=== PATIENT | male | born 1970 | race Two or more races ===

== ENCOUNTER 2024-04-18 22:10 | Inpatient (IN) | payer OTHER ==
[2024-04-18 22:22] VITALS: BMI 26.6
[2024-04-18] MEDS ORDERED: NICOTINE POLACRILEX 2 MG LOZENGE BC PRN (22:33)
[2024-04-18] MEDS ORDERED: BISMUTH SUBSALICYLATE 524 MG/30 ML PO PRN (22:33)
[2024-04-18] MEDS ORDERED: NICOTINE POLACRILEX 2 MG GUM BUC PRN (22:33)
[2024-04-18] MEDS ORDERED: ONDANSETRON *ODT* 4 MG TABLET SL PRN (22:33)
[2024-04-18] MEDS ORDERED: BENZONATATE 200 MG CAPSULE PO PRN (22:33)
[2024-04-18] MEDS ORDERED: LOPERAMIDE HCL 2 MG CAPSULE PO PRN (22:33)
[2024-04-18] MEDS ORDERED: IBUPROFEN 400 MG TABLET (FP) PO PRN (22:33)
[2024-04-18] MEDS ORDERED: ACETAMINOPHEN 325 MG TABLET (FP) PO PRN (22:33)
[2024-04-18] MEDS ORDERED: DICYCLOMINE HCL 10 MG CAPSULE PO PRN (22:33)
[2024-04-18] MEDS ORDERED: BENZOCAINE/MENTHOL (CHLORASEPTIC ) LOZENGE MM PRN (22:33)
[2024-04-18] MEDS ORDERED: MAGNESIUM HYDROX 2400MG/30ML ORAL SUSPENSION 30 ML CUP PO PRN (22:33)
[2024-04-18] MEDS ORDERED: POLYETHYLENE GLYCOL (HEALTHYLAX) 3350 17 GM PACKET PO PRN (22:33)
[2024-04-18] MEDS ORDERED: guaiFENesin 600 MG TABLET.ER (FP) PO PRN (22:33)
[2024-04-18] MEDS ORDERED: MAG HYDROX/AL HYDROX/SIMETH 30 ML UNIT-DOSE CUP PO PRN (22:33)
[2024-04-19] MEDS ORDERED: chlordiazePOXIDE HCL 25 MG CAPSULE PO PRN (09:24)
[2024-04-19] MEDS: chlordiazePOXIDE HCL 25 MG CAPSULE PO SCH (10:08)
[2024-04-19] MEDS: PRENATAL VITAMINS W/ FOLIC ACID TABLET (FP) PO SCH (10:08)
[2024-04-19 11:28] LABS: CHLORIDE 107 mmol/L (98-107); POTASSIUM 3.7 mmol/L (3.5-5.1); SODIUM 142 mmol/L (136-145)
[2024-04-19 11:32] LABS: BLOOD UREA NITROGEN 10.6 mg/dL (7-18); CALCIUM 8.6 mg/dL (8.5-10.1); HEMATOCRIT 39.2 % (35.4-49); HEMOGLOBIN 12.6 GM/dL (11.7-16.9); MCH 30.4 pg (25.7-33.7); MCHC 32.1 g/dl (32.0-35.9); MEAN CELL VOLUME 94.6 fl (80-96); MEAN PLT VOLUME 9.6 fl (7.5-11.1); PLATELET COUNT 145 10^3/uL (134-434); RBC 4.14 M/mm3 (4.00-5.60); WHITE BLOOD COUNT 5.8 K/mm3 (4.0-10.0)
[2024-04-19 11:33] LABS: ANION GAP 6 mmol/L (4-13); CO2 29 mmol/L (21-32); GLUCOSE,RANDOM 82 mg/dL (74-106)
[2024-04-19 11:34] LABS: SGOT/AST 35 U/L (15-37); SGPT/ALT 26 U/L (13-61)
[2024-04-19 11:35] LABS: CREATININE 0.6 mg/dL (0.55-1.3)
[2024-04-19 11:36] LABS: BILIRUBIN,TOTAL 0.5 mg/dL (0.2-1); TOT PROT 5.7 g/dl (6.4-8.2)
[2024-04-19 11:38] LABS: ALK PHOS 110 U/L (45-117)
[2024-04-19] MEDS: THIAMINE 100 MG TABLET PO SCH (22:40)
[2024-04-19] MEDS: MELATONIN 5 MG TABLETS PO SCH (22:40)
[2024-04-20] MEDS: METHOCARBAMOL 500 MG TABLET PO PRN (22:33)
[2024-04-21] MEDS: chlordiazePOXIDE HCL 25 MG CAPSULE PO SCH (05:44)
[2024-04-22] MEDS ORDERED: chlordiazePOXIDE HCL 10 MG CAPSULE PO PRN
[2024-04-22] MEDS: chlordiazePOXIDE HCL 10 MG CAPSULE PO SCH (05:50)
[2024-04-22] MEDS: MINERAL OIL/PET HY-PHL TOPICAL OINTMENT 454 GM JAR TP SCH (12:22)
[2024-04-23] MEDS: chlordiazePOXIDE HCL 10 MG CAPSULE PO SCH (05:46)
[2024-04-23] MEDS: IBUPROFEN 600 MG TABLET (FP) PO PRN (10:40)
[2024-04-23] MEDS: hydrOXYzine PAMOATE 25 MG CAPSULE (FP) PO PRN (21:03)
[2024-04-24] MEDS: chlordiazePOXIDE HCL 10 MG CAPSULE PO ONE (05:41)
[2024-04-24 11:00] VITALS: BP 107/76; PULSE 84; RESP 18; TEMP 98.4
[2024-04-24] MEDS: NALOXONE (NYS OPIOID OVERDOSE PROGRAM) 4 MG/0.1 ML SPRAY NS SCH (11:09)
== END 2024-04-24 11:30 | disposition home or self-care (01) | DRG 775 ==
LOC: YASAS 22:10 → Y3N 22:54
PROVIDERS: ADMIT Allergy & Immunology; ATTEND Surgery
PROC: HZ2ZZZZ Detoxification Services for Substance Abuse Treatment (ICD-10-PCS; principal; 2024-04-18)
DX: F10.230 Alcohol dependence with withdrawal, uncomplicated (principal); F10.220 Alcohol dependence with intoxication, uncomplicated; F17.210 Nicotine dependence, cigarettes, uncomplicated
CPT/HCPCS: 36415; 80053; 80307; 85027; 86780; 93005; 93010

== ENCOUNTER 2024-05-30 10:53 | Inpatient (IN) | payer OTHER ==
[2024-05-30 11:10] VITALS: BMI 28.7
[2024-05-30] MEDS ORDERED: NICOTINE POLACRILEX 2 MG LOZENGE BC PRN (11:35)
[2024-05-30] MEDS ORDERED: ACETAMINOPHEN 325 MG TABLET (FP) PO PRN (11:35)
[2024-05-30] MEDS ORDERED: LOPERAMIDE HCL 2 MG CAPSULE PO PRN (11:35)
[2024-05-30] MEDS ORDERED: BISMUTH SUBSALICYLATE 262 MG/15 ML BTL PO PRN (11:35)
[2024-05-30] MEDS ORDERED: guaiFENesin 600 MG TABLET.ER (FP) PO PRN (11:35)
[2024-05-30] MEDS ORDERED: BENZONATATE 200 MG CAPSULE PO PRN (11:35)
[2024-05-30] MEDS ORDERED: MAGNESIUM HYDROX 2400MG/30ML ORAL SUSPENSION 30 ML CUP PO PRN (11:35)
[2024-05-30] MEDS ORDERED: POLYETHYLENE GLYCOL (HEALTHYLAX) 3350 17 GM PACKET PO PRN (11:35)
[2024-05-30] MEDS ORDERED: BENZOCAINE/MENTHOL (CHLORASEPTIC ) LOZENGE MM PRN (11:35)
[2024-05-30] MEDS ORDERED: MAG HYDROX/AL HYDROX/SIMETH 30 ML UNIT-DOSE CUP PO PRN (11:35)
[2024-05-30] MEDS ORDERED: IBUPROFEN 600 MG TABLET (FP) PO PRN (11:35)
[2024-05-30] MEDS ORDERED: IBUPROFEN 400 MG TABLET (FP) PO PRN (11:35)
[2024-05-30] MEDS ORDERED: NICOTINE POLACRILEX 2 MG GUM BUC PRN (11:35)
[2024-05-30] MEDS ORDERED: DICYCLOMINE HCL 10 MG CAPSULE PO PRN (11:35)
[2024-05-30] MEDS ORDERED: diazePAM 5 MG TABLET ONE (11:49)
[2024-05-30] MEDS: diazePAM 5 MG TABLET PO SCH (11:53)
[2024-05-30] MEDS: THIAMINE 100 MG TABLET PO SCH (21:49)
[2024-05-30] MEDS: MELATONIN 5 MG TABLETS PO SCH (21:50)
[2024-05-31 09:44] LABS: HEMATOCRIT 39.8 % (35.4-49); HEMOGLOBIN 13.3 GM/dL (11.7-16.9); MCH 30.4 pg (25.7-33.7); MCHC 33.3 g/dl (32.0-35.9); MEAN CELL VOLUME 91.2 fl (80-96); MEAN PLT VOLUME 9.6 fl (7.5-11.1); PLATELET COUNT 130 10^3/uL (134-434); RBC 4.37 M/mm3 (4.00-5.60); RDW 14.2 % (11.9-15.9); WHITE BLOOD COUNT 6.4 K/mm3 (4.0-10.0)
[2024-05-31 09:46] LABS: POTASSIUM 3.1 mmol/L (3.5-5.1)
[2024-05-31 09:49] LABS: CALCIUM 8.2 mg/dL (8.5-10.1)
[2024-05-31 09:50] LABS: ALBUMIN 2.9 g/dl (3.4-5.0)
[2024-05-31 09:53] LABS: CREATININE 0.8 mg/dL (0.55-1.3)
[2024-05-31 09:55] LABS: BILIRUBIN,TOTAL 0.7 mg/dL (0.2-1); BLOOD UREA NITROGEN 10.3 mg/dL (7-18); TOT PROT 5.9 g/dl (6.4-8.2)
[2024-05-31] MEDS: ONDANSETRON *ODT* 4 MG TABLET SL PRN (10:52)
[2024-05-31] MEDS: PRENATAL VITAMINS W/ FOLIC ACID TABLET (FP) PO SCH (10:53)
[2024-05-31] MEDS: MIRTAZAPINE 15 MG TABLET (FP) PO SCH (22:26)
[2024-06-01] MEDS: diazePAM 5 MG TABLET PO SCH (05:24)
[2024-06-01] MEDS: METHOCARBAMOL 500 MG TABLET PO PRN (09:36)
[2024-06-01] MEDS: hydrOXYzine PAMOATE 25 MG CAPSULE (FP) PO PRN (09:36)
[2024-06-01] MEDS: diazePAM 5 MG TABLET PO PRN (09:36)
[2024-06-02] MEDS: diazePAM 5 MG TABLET PO SCH (05:36)
[2024-06-02] MEDS: POTASSIUM CHLORIDE ORAL LIQUID 20 MEQ/15 ML PO ONE (13:18)
[2024-06-03] MEDS: diazePAM 5 MG TABLET PO ONE (05:35)
[2024-06-03 08:44] VITALS: BP 117/77; PULSE 72; RESP 16; TEMP 97.8
== END 2024-06-03 10:38 | disposition home or self-care (01) | DRG 775 ==
LOC: YASAS 10:53 → Y6N 11:56
PROVIDERS: ADMIT Allergy & Immunology; ATTEND Allergy & Immunology
PROC: HZ2ZZZZ Detoxification Services for Substance Abuse Treatment (ICD-10-PCS; principal; 2024-05-30)
DX: F10.230 Alcohol dependence with withdrawal, uncomplicated (principal); F12.20 Cannabis dependence, uncomplicated; F17.210 Nicotine dependence, cigarettes, uncomplicated; F19.282 Other psychoactive substance dependence with psychoactive substance-induced sleep disorder; F19.24 Other psychoactive substance dependence with psychoactive substance-induced mood disorder; E87.6 Hypokalemia; Z56.0 Unemployment, unspecified; Z59.00 Homelessness unspecified
CPT/HCPCS: 36415; 80053; 80305; 80307; 84132; 85027; Q0162